=== PATIENT | female | born 1945 | race Caucasian/White ===

== ENCOUNTER 2021-11-12 13:14 | Emergency (ER) | payer MEDICARE, BC ==
[2021-11-13 15:34] LABS: SARS-CoV-2 PCR by NAA DETECTED (NotDetected)
== END 2021-11-12 14:00 | disposition home or self-care (01) ==
LOC: BURERS 13:14
DX: U07.1 COVID-19 (principal)
CPT/HCPCS: 87804 ×2; U0003; U0005; 99284

== ENCOUNTER 2024-07-18 11:44 | Emergency (ER) | payer MEDICARE, BC ==
[2024-07-18] MEDS ORDERED: Morphine 4 MG/ML VIAL ONE (12:03)
[2024-07-18 12:09] LABS: #Basophils 0.1 thou/uL (0.0-0.2); #Eosinphils 0.2 thou/uL (0.0-0.7); #Lymphocytes 2.6 thou/uL (1.20-3.40); #Monocytes 0.5 thou/uL (0.11-0.59); #Neutrophils 3.1 thou/uL (1.40-6.50); %Basophils 1.4 % (0.0-1.0); %Eosinophils 3.6 % (0.0-10.0); %Lymphocytes 40.5 % (21.0-51.0); %Monocytes 6.9 % (0.0-10.0); %Neutrophils 47.6 % (42.0-75.0); Hematocrit 38.1 % (36.0-47.0); Hemoglobin 13.2 g/dL (12.0-16.0); Mean Corpuscular HGB CONC 34.6 g/dL (32.0-36.0); Mean Corpuscular Hemoglobin 31.6 pg (27.0-31.0); Mean Corpuscular Volume 91.4 fl (78.0-98.0); Mean Platelet Volume 5.9 fL (7.4-10.4); Platelet Count 284 10x3/uL (130-400); RBC Distribution Width 11.6 % (11.5-14.5); Red Blood Cell (RBC) Count 4.16 mill/uL (4.20-5.40); White Blood Cell (WBC) Count 6.4 10x3/uL (4.8-10.8)
[2024-07-18 12:19] LABS: INR-International Normal Ratio 0.9; Prothrombin Time 12.1 sec (12.0-14.7)
[2024-07-18 12:20] LABS: PTT 27.8 sec (22.9-36.1)
[2024-07-18 12:26] LABS: ALT (SGPT) 32 U/L (8-55); AST (SGOT) 27 U/L (5-34); Albumin 4.5 g/dL (3.4-4.8); Alkaline Phosphatase 73 U/L (40-110); Anion Gap 18 mmol/L (10-20); BUN (Urea Nitrogen) 26 mg/dL (9.8-20.1); Bilirubin, Total 0.5 mg/dL (0.2-1.2); CK (CPK) 245 U/L (29-168); Calc. Creatinine Clearance 0 mL/min (70-130); Calcium 10.2 mg/dL (7.8-10.44); Carbon Dioxide 22 mmol/L (23-31); Chloride 107 mmol/L (98-107); Estimated GFR 55; Globulin 2.9 g/dL (2.4-3.5); Glucose 120 mg/dL (83-110); Potassium 4.4 mmol/L (3.5-5.1); Protein, Total 7.4 g/dL (5.8-8.1); Sodium 143 mmol/L (136-145)
== END 2024-07-18 13:55 | disposition home or self-care (01) ==
LOC: BURERS 11:44
DX: T63.061A Toxic effect of venom of other North and South American snake, accidental (unintentional), initial encounter (principal); M79.671 Pain in right foot
CPT/HCPCS: 36415; 80053; 82550; 85025; 85610; 85730; 96374; J2272